=== PATIENT | male | born 1950 | race Hispanic/Latino ===

== ENCOUNTER 2018-10-25 10:10 | Inpatient (IN) | payer OTHER ==
--- NOTE | 2018-10-25 12:39 | RAD ---
Date of service: 10/25/2018 HISTORY: possible admission COMPARISON: No prior. FINDINGS: LUNGS: The lungs are well inflated. There is confluent airspace disease in the right lower lobe. There is left lower lobe subsegmental atelectasis. PLEURA: No pleural effusions or pneumothorax. CARDIOVASCULAR: The heart is normal in size. No aortic atherosclerotic calcification present. OSSEOUS STRUCTURES: Within normal limits for the patient's age. VISUALIZED UPPER ABDOMEN: Normal. OTHER FINDINGS: None. IMPRESSION: Findings are concerning for right lower lobe pneumonia. Follow-up after medical management is recommended to ensure complete resolution. The final report is tagged to the PA review folder.
[2018-10-25] MEDS ORDERED: cefTRIAXone (Rocephin) 1 gm Inj ONE (13:21)
[2018-10-25] MEDS ORDERED: Azithromycin 500 MG IV IVPB ONE (13:21)
[2018-10-25] MEDS ORDERED: Albuterol-Ipratrop 3 mg / 0.5 (3 ml) UD ONE ×3 (13:21→20:45)
[2018-10-25] MEDS ORDERED: Dexamethasone 4 mg/1 ml ONE (13:21)
[2018-10-25 15:20] LABS: BLOOD UREA NITROGEN 15 mg/dl (9-20); GFR NON-AFRICAN AMERICAN > 60
[2018-10-25 15:21] LABS: CALCIUM 9.2 mg/dL (8.4-10.2)
[2018-10-25 15:22] LABS: ALB/GLOB RATIO 0.9 (1.0-2.1); ALT/SGPT 40 U/L (21-72); AST/SGOT 57 U/L (17-59); B-TYPE NATRIURETIC PEPTIDE 35 pg/ml (0-900)
[2018-10-25] MEDS ORDERED: Sodium Chloride 3% for Inhalation 4 ML VIAL.NEB IH PRN (15:31)
[2018-10-25] MEDS: Sodium Chloride 0.9% 1,000 ML IV SCH (15:35)
[2018-10-25 16:08] LABS: BASO % 0.5 % (0.0-2.0); HEMOGLOBIN 13.5 g/dL (12.0-18.0); LYMPH # 1.1 K/uL (1.0-4.3); LYMPH % 10.3 % (20.0-40.0); MEAN CELL VOLUME 92.9 fl (80.0-94.0); MEAN CORPUSCULAR HEMOGLOBIN 31.2 pg (27.0-31.0); MEAN CORPUSCULAR HGB CONC 33.6 g/dL (33.0-37.0); MEAN PLATELET VOLUME 8.1 fl (7.2-11.7); MONO # 0.8 K/uL (0.0-0.8); MONO % 7.4 % (0.0-10.0); NEUT # 8.7 K/uL (1.8-7.0); NEUT % 81.8 % (50.0-75.0); RBC 4.3 Mil/uL (4.40-5.90); RED CELL DISTRIBUTION WIDTH 13.1 % (11.5-14.5); WHITE BLOOD COUNT 10.6 K/uL (4.8-10.8)
--- NOTE | 2018-10-25 16:37 | CP.PCM.HP ---
History of Present Illness - History of Present Illness History of Present Illness: 68 yo M with no significant known medical history, admitted for sepsis secondary to bilateral pneumonia; complained of cough productive of yellow sputum x 1 week, accompanied by shortness of breath, tactile fevers and loss of appetite. Denies any hemoptysis, hematochezia, vomiting, nausea, diarrhea, chills. Reports that he has been having some chronic cough for several years but it has gotten worse in the past week. States he does not have a doctor. Lives in [place]; here visiting his daughter for past week. Denies chills, chest pain, abdominal pain, nausea, vomiting, diarrhea, constipation, leg swelling, problems with vision/hearing. Med hx: denies any chronic medical problems Surg hx: denies any surgical procedures Social hx: smoker, 1 ppd since age 18, quit 1 mo ago as per pt. Lives with in [place]. Family hx: noncontributory Meds: denies any medications Allergies: denies any allergies, NKDA ED course: afebrile, normotensive, O2 sat on room air dropping to low 80s as observed by ED RN Labs: CMP unremarkable, neg troponin, proBNP 35 EKG NSR Neg for influenza Duoneb x3 12 mg decadron 500 mg zithromax 1 gm rocephin Received 2.5L NS Blood cultures collected CXR: bilateral infilrates Venti- Mask Present on Admission - Present on Admission Any Indicators Present on Admission: No Review of Systems - Review of Systems All systems: reviewed and no additional remarkable complaints except (cough, shortness of breath, fevers; as per HPI) Past Patient History - Infectious Disease Hx of Infectious Diseases: None - Past Social History Smoking Status: Former Smoker Alcohol: None Drugs: Denies - CARDIAC Hx Cardiac Disorders: No - PULMONARY Hx Respiratory Disorders: No - NEUROLOGICAL Hx Neurological Disorder: No - HEENT Hx HEENT Problems: No - RENAL Hx Chronic Kidney Disease: No - ENDOCRINE/METABOLIC Hx Endocrine Disorders: No - HEMATOLOGICAL/ONCOLOGICAL Hx Blood Disorders: No - INTEGUMENTARY Hx Dermatological Problems: No - MUSCULOSKELETAL/RHEUMATOLOGICAL Hx Musculoskeletal Disorders: No - GASTROINTESTINAL Hx Gastrointestinal Disorders: No - GENITOURINARY/GYNECOLOGICAL Hx Genitourinary Disorders: No - PSYCHIATRIC Hx Psychophysiologic Disorder: No Hx Substance Use: No - SURGICAL HISTORY Hx Surgeries: No - ANESTHESIA Hx Anesthesia: No Meds Allergies/Adverse Reactions: Allergies Allergy/AdvReac Type Severity Reaction Status Date / Time No Known Allergies Allergy Verified 10/25/18 10:44 Physical Exam - Constitutional Additional comments: unwell, sick - Head Exam Head Exam: NORMAL INSPECTION Additional comments: wearing venti-mask - Eye Exam Eye Exam: Normal appearance - ENT Exam ENT Exam: Mucous Membranes Moist - Neck Exam Neck exam: Positive for: Full Rom. Negative for: Lymphadenopathy - Respiratory Exam Respiratory Exam: Decreased Breath Sounds. absent: Clear to Auscultation Bilateral Additional comments: decreased breath sounds; wheezing/crackles/coarse sounds at bases bilaterally coughing during assessment - Cardiovascular Exam Cardiovascular Exam: REGULAR RHYTHM, +S1, +S2 - GI/Abdominal Exam GI & Abdominal Exam: Normal Bowel Sounds, Soft - Extremities Exam Extremities exam: Positive for: normal inspection. Negative for: calf tender ness, pedal edema - Back Exam Back exam: NORMAL INSPECTION - Neurological Exam Neurological exam: Alert - Skin Skin Exam: Warm Results - Vital Signs Recent Vital Signs: Last Vital Signs Temp 98.4 F 10/25/18 10:19 Pulse 84 10/25/18 10:19 Resp 17 10/25/18 10:19 BP 131/75 10/25/18 10:19 Pulse Ox 95 10/25/18 10:19 - Labs Result Diagrams: 10/25/18 11:00 10/25/18 11:25 Labs: Laboratory Results - last 24 hr 10/25/18 10/25/18 10/25/18 11:00 11:25 11:35 WBC 10.6 RBC 4.30 L Hgb 13.5 Hct 40.0 MCV 92.9 MCH 31.2 H MCHC 33.6 RDW 13.1 Plt Count 337 MPV 8.1 Neut % (Auto) 81.8 H Lymph % (Auto) 10.3 L [place] % (Auto) 7.4 Eos % (Auto) 0.0 Baso % (Auto) 0.5 Neut # (Auto) 8.7 H Lymph # (Auto) 1.1 [place] # (Auto) 0.8 Eos # (Auto) 0.0 Baso # (Auto) 0.0 Sodium 135 Potassium 3.9 Chloride 100 Carbon Dioxide 27 Anion Gap 12 BUN 15 Creatinine 0.7 L Est GFR ( Amer) > 60 Est GFR (Non-Af Amer) > 60 Random Glucose 115 H Calcium 9.2 Total Bilirubin 0.6 AST 57 ALT 40 Alkaline Phosphatase 181 H Troponin I < 0.0120 NT-Pro-B Natriuret Pep 35 Total Protein 8.7 H Albumin 4.0 Globulin 4.7 H Albumin/Globulin Ratio 0.9 L Influenza Typ A,B (EIA) Negative for flu a/b Assessment & Plan - Assessment and Plan (Free Text) Assessment: 68 yo M with no known medical history, smoker, admitted with sepsis due to bilateral pneumonia. CXR official read: Findings concerning for right lower lobe pneumonia. Left lower lobe subsegmental atelectasis. Plan: Community Acquired Pneumonia - Admit to telemetry and place on tele monitoring - S/p 1 gm rocephin and 500 mg azithromycin - Start vancomycin 1 gm Q12h, Zosyn 3.375 gm Q6h, zithromax 500 mg daily - F/u blood cultures and sputum cultures - Legionella and mycoplasma antigen testing - ABG - High Flow O2, humidified, 10L/hr at 40% FiO2 - Mucinex-DM for cough - Duonebs Q4 hrs scheduled - IV hydration, NS @ 100 ml/hr Diet - Regular diet DVT prophylaxis - Lovenox SC Pt seen and discussed in ED with Dr. Guzman.
[2018-10-25] MEDS: Albuterol-Ipratrop 3 mg / 0.5 (3 ml) UD INH SCH ×2 (16:45→20:45)
[2018-10-25] MEDS ORDERED: Vancomycin 1 g Inj ONE (20:45)
[2018-10-26] MEDS: Albuterol-Ipratrop 3 mg / 0.5 (3 ml) UD INH SCH ×6 (00:15→18:59)
[2018-10-26] MEDS: Sodium Chloride 0.9% 1,000 ML IV SCH ×2 (04:07→09:22)
[2018-10-26] MEDS: Piperacillin/Tazobact 3.375 GM in Sodium Chloride 0.9% 100 ML IVPB SCH ×4 (05:51→21:11)
[2018-10-26 06:34] LABS: ALB/GLOB RATIO 0.8 (1.0-2.1); ALBUMIN 3.3 g/dL (3.5-5.0); ALT/SGPT 43 U/L (21-72); AST/SGOT 46 U/L (17-59); BLOOD UREA NITROGEN 15 mg/dl (9-20); CALCIUM 8.2 mg/dL (8.4-10.2); GFR NON-AFRICAN AMERICAN > 60
[2018-10-26 06:41] LABS: BASO % 0.2 % (0.0-2.0); LYMPH % 10.3 % (20.0-40.0); MEAN CELL VOLUME 93.2 fl (80.0-94.0); MEAN CORPUSCULAR HEMOGLOBIN 31.2 pg (27.0-31.0); MEAN CORPUSCULAR HGB CONC 33.5 g/dL (33.0-37.0); MEAN PLATELET VOLUME 7.8 fl (7.2-11.7); MONO # 0.6 K/uL (0.0-0.8); MONO % 5.8 % (0.0-10.0); NEUT # 8.3 K/uL (1.8-7.0); NEUT % 83.7 % (50.0-75.0); RBC 3.84 Mil/uL (4.40-5.90); WHITE BLOOD COUNT 9.9 K/uL (4.8-10.8)
[2018-10-26] MEDS: Enoxaparin 40 mg Syringe SC SCH (09:22)
--- NOTE | 2018-10-26 09:22 | CARD ---
APPROVED REPORT Date of service: 10/25/2018 EKG Measurement Heart [id number] <Conclusion> Normal sinus rhythm Normal ECG
[2018-10-26] MEDS: guaiFENesin-DM 600-30 mg ER Tab PO SCH ×2 (11:00→18:54)
[2018-10-26] MEDS: Azithromycin 500 MG in Sodium Chloride 0.9% 250 ML IVPB SCH (11:33)
--- NOTE | 2018-10-26 12:59 | CP.PCM.PN ---
Subjective - Date & Time of Evaluation Date of Evaluation: 10/26/18 Time of Evaluation: 10:30 - Subjective Subjective: Pt seen/eval at bedside; still on high flow O2. No acute events overnight, states he feels better than yesterday, still has productive cough. No chest pain, tolerating regular diet. Objective - Vital Signs/Intake and Output Vital Signs (last 24 hours): Temp Pulse Resp BP Pulse Ox 98.1 F 69 18 111/59 L 96 10/26/18 11:56 10/26/18 11:56 10/26/18 11:56 10/26/18 11:56 10/26/18 11:56 - Medications Medications: Current Medications Albuterol/Ipratropium (Duoneb 3 Mg/0.5 Mg (3 Ml) Ud) 3 ml INH RQ4 VICENTA Last Admin: 10/26/18 11:24 Dose: 3 ml Enoxaparin Sodium (Lovenox) 40 mg SC DAILY VICENTA; Protocol Last Admin: 10/26/18 09:22 Dose: 40 mg Guaifenesin/Dextromethorphan (Mucinex-Dm 600-30 Mg) 2 tab PO BID VICENTA Last Admin: 10/26/18 11:00 Dose: 2 tab Azithromycin 500 mg/ Sodium (Chloride) 250 mls @ 250 mls/hr IVPB DAILY VICENTA; Protocol Last Admin: 10/26/18 11:33 Dose: 250 mls/hr Vancomycin HCl 1 gm/ Sodium (Chloride) 250 mls @ 250 mls/hr IVPB Q12H VICENTA; Protocol Last Admin: 10/26/18 03:44 Dose: 250 mls/hr Piperacillin Sod/Tazobactam (Sod 3.375 gm/ Sodium Chloride) 100 mls @ 100 mls/hr IVPB Q6 VICENTA; Protocol Last Admin: 10/26/18 09:21 Dose: 100 mls/hr Sodium Chloride (Sodium Chloride 0.9%) 1,000 mls @ 125 mls/hr IV .Q8H VICENTA Stop: 10/26/18 15:39 Last Admin: 10/26/18 09:22 Dose: 125 mls/hr - Labs Labs: 10/26/18 04:15 10/26/18 04:15 - Constitutional Appears: No Acute Distress - Head Exam Head Exam: NORMAL INSPECTION Additional comments: wearing mask, on high flow O2 - Eye Exam Eye Exam: Normal appearance - ENT Exam ENT Exam: Mucous Membranes Moist - Respiratory Exam Respiratory Exam: Decreased Breath Sounds, NORMAL BREATHING PATTERN. absent: Respiratory Distress - Cardiovascular Exam Cardiovascular Exam: REGULAR RHYTHM, +S1, +S2 - GI/Abdominal Exam GI & Abdominal Exam: Soft - Extremities Exam Extremities Exam: Normal Inspection. absent: Calf Tenderness - Neurological Exam Neurological Exam: Alert - Psychiatric Exam Psychiatric exam: Normal Affect - Skin Skin Exam: Normal Color Assessment and Plan - Assessment and Plan (Free Text) Assessment: 68 yo M with no known medical history, smoker, admitted with sepsis due to bilateral pneumonia. CXR official read: Findings concerning for right lower lobe pneumonia. Left lower lobe subsegmental atelectasis. Originally saturating in low 80s without O2, breathing at 40-45 breaths/min. Improved O2 sat on venti ariel and high flow O2, resp rate normalized to 18-20. Plan: Community Acquired Pneumonia - S/p 1 gm rocephin and 500 mg azithromycin - Continue vancomycin 1 gm Q12h, Zosyn 3.375 gm Q6h, zithromax 500 mg daily - F/u blood cultures and sputum cultures - Legionella and mycoplasma antigen testing - Trial of nasal canula 3L/min; monitor for desat or resp distress - Mucinex-DM for cough - Duonebs Q4 hrs scheduled - IV hydration, NS @ 100 ml/hr Diet - Regular diet DVT prophylaxis - Lovenox SC
[2018-10-27] MEDS: Albuterol-Ipratrop 3 mg / 0.5 (3 ml) UD INH SCH ×4 (00:11→11:08)
[2018-10-27] MEDS: Piperacillin/Tazobact 3.375 GM in Sodium Chloride 0.9% 100 ML IVPB SCH ×2 (03:07→09:27)
[2018-10-27 05:46] LABS: HEMOGLOBIN 11.8 g/dL (12.0-18.0); MEAN CELL VOLUME 95.9 fl (80.0-94.0); MEAN CORPUSCULAR HEMOGLOBIN 31.2 pg (27.0-31.0); MEAN CORPUSCULAR HGB CONC 32.5 g/dL (33.0-37.0); RBC 3.79 Mil/uL (4.40-5.90); RED CELL DISTRIBUTION WIDTH 13.2 % (11.5-14.5); WHITE BLOOD COUNT 9.6 K/uL (4.8-10.8)
[2018-10-27 05:56] LABS: BLOOD UREA NITROGEN 12 mg/dl (9-20); CALCIUM 8.4 mg/dL (8.4-10.2); GFR NON-AFRICAN AMERICAN > 60
[2018-10-27 08:18] VITALS: RESP 18
[2018-10-27] MEDS: Azithromycin 500 MG in Sodium Chloride 0.9% 250 ML IVPB SCH (09:28)
[2018-10-27] MEDS: Enoxaparin 40 mg Syringe SC SCH (09:29)
[2018-10-27] MEDS: guaiFENesin-DM 600-30 mg ER Tab PO SCH (09:29)
[2018-10-27 12:11] VITALS: BP 114/69; PULSE 69; TEMP 97.4; O2SAT 95
[2018-10-27] MEDS ORDERED: Pneumococcal 23-Valent Vaccine IM ONE (14:22)
--- NOTE | 2018-10-27 14:22 | CP.PCM.DIS ---
Provider - Provider Date of Admission: 10/25/18 15:26 Attending physician: Liat Guzman MD Primary care physician: none Time Spent in preparation of Discharge (in minutes): 30 Diagnosis - Discharge Diagnosis (1) Community acquired pneumonia Status: Acute Hospital Course - Lab Results Lab Results: Micro Results 10/25/18 11:15 Blood-Venous Blood Culture - Preliminary NO GROWTH AFTER 24 HOURS Most Recent Lab Values WBC 9.6 K/uL (4.8-10.8) 10/27/18 04:30 RBC 3.79 Mil/uL (4.40-5.90) L 10/27/18 04:30 Hgb 11.8 g/dL (12.0-18.0) L 10/27/18 04:30 Hct 36.3 % (35.0-51.0) 10/27/18 04:30 MCV 95.9 fl (80.0-94.0) H D 10/27/18 04:30 MCH 31.2 pg (27.0-31.0) H 10/27/18 04:30 MCHC 32.5 g/dL (33.0-37.0) L 10/27/18 04:30 RDW 13.2 % (11.5-14.5) 10/27/18 04:30 Plt Count 357 K/uL (130-400) 10/27/18 04:30 MPV 7.8 fl (7.2-11.7) 10/26/18 04:15 Neut % (Auto) 83.7 % (50.0-75.0) H 10/26/18 04:15 Lymph % (Auto) 10.3 % (20.0-40.0) L 10/26/18 04:15 [place] % (Auto) 5.8 % (0.0-10.0) 10/26/18 04:15 Eos % (Auto) 0.0 % (0.0-4.0) 10/26/18 04:15 Baso % (Auto) 0.2 % (0.0-2.0) 10/26/18 04:15 Neut # (Auto) 8.3 K/uL (1.8-7.0) H 10/26/18 04:15 Lymph # (Auto) 1.0 K/uL (1.0-4.3) 10/26/18 04:15 [place] # (Auto) 0.6 K/uL (0.0-0.8) 10/26/18 04:15 Eos # (Auto) 0.0 K/uL (0.0-0.7) 10/26/18 04:15 Baso # (Auto) 0.0 K/uL (0.0-0.2) 10/26/18 04:15 Sodium 138 mmol/l (132-148) 10/27/18 04:30 Potassium 3.8 MMOL/L (3.6-5.0) 10/27/18 04:30 Chloride 104 mmol/L (98-107) 10/27/18 04:30 Carbon Dioxide 26 mmol/L (22-30) 10/27/18 04:30 Anion Gap 12 (10-20) 10/27/18 04:30 BUN 12 mg/dl (9-20) 10/27/18 04:30 Creatinine 0.7 mg/dl (0.8-1.5) L 10/27/18 04:30 Est GFR ( Amer) > 60 10/27/18 04:30 Est GFR (Non-Af Amer) > 60 10/27/18 04:30 Random Glucose 127 mg/dL (75-110) H 10/27/18 04:30 Calcium 8.4 mg/dL (8.4-10.2) 10/27/18 04:30 Magnesium 2.7 MG/DL (1.6-2.3) H 10/26/18 04:15 Total Bilirubin 0.4 mg/dl (0.2-1.3) 10/26/18 04:15 AST 46 U/L (17-59) 10/26/18 04:15 ALT 43 U/L (21-72) 10/26/18 04:15 Alkaline Phosphatase 123 U/L (38-126) 10/26/18 04:15 Troponin I < 0.0120 ng/mL (0.00-0.120) 10/25/18 11:25 NT-Pro-B Natriuret Pep 35 pg/ml (0-900) 10/25/18 11:25 Total Protein 7.4 G/DL (6.3-8.2) 10/26/18 04:15 Albumin 3.3 g/dL (3.5-5.0) L 10/26/18 04:15 Globulin 4.1 gm/dL (2.2-3.9) H 10/26/18 04:15 Albumin/Globulin Ratio 0.8 (1.0-2.1) L 10/26/18 04:15 Influenza Typ A,B (EIA) Negative for flu a/b (NEGATIVE) 10/25/18 11:35 - Hospital Course Hospital Course: 68 yo M with no known medical history, smoker, admitted with sepsis due to bilateral pneumonia. CXR official read: Findings concerning for right lower lobe pneumonia. Left lower lobe subsegmental atelectasis. Originally saturating in low 80s without O2, breathing at 40-45 breaths/min. Improved O2 sat on venti ariel and high flow O2, resp rate normalized to 18-20. Started on vanco, zosyn, azithromycin, with marked clinical improvement. Sputum and blood cultures negative thus far. No leukocytosis. Since yesterday has been on NC, saturating 95-100; ambulated around unit today without NC, saturating 97%. Physical exam much improved - clearer breath sounds than on admission. Pt seen today; reports feeling much better. Discussed with pt that he is stable for d/c but must continue to take PO antibiotics x 10 days (Omnicef 300 mg BID x 10 days, Augment 875-125 mg BID x 10 days). Also discussed must follow up with primary care physician - apt made at [facility] for Nov 03, 2018 at 320 pm. Pt and his family at bedside verbalized understanding. Discharge Exam - Head Exam Head Exam: NORMAL INSPECTION - Eye Exam Eye Exam: Normal appearance - ENT Exam ENT Exam: Mucous Membranes Moist - Respiratory Exam Respiratory Exam: NORMAL BREATHING PATTERN. absent: Respiratory Distress Additional comments: some coarse sounds at bases, but significantly improved from admission - Cardiovascular Exam Cardiovascular Exam: REGULAR RHYTHM, +S1, +S2 - GI/Abdominal Exam GI & Abdominal Exam: Soft - Extremities Exam Extremities exam: normal inspection - Neurological Exam Neurological exam: Alert, Oriented x3 - Psychiatric Exam Psychiatric exam: Normal Mood - Skin Skin Exam: Dry, Normal Color, Warm Discharge Plan - Discharge Medications Prescriptions: Amoxicillin/Clavulanate [Augmentin 875 MG-125 MG] 1 tab PO Q12 #20 tab Cefdinir [Omnicef] 300 mg PO Q12 #20 cap - Follow Up Plan Condition: GOOD Disposition: HOME/ ROUTINE Instructions: Pneumonia, Adult (DC) Additional Instructions: Please take antibiotics as prescribed; there are 2 prescriptions (omnicef and augmentin). You have a follow up visit at [facility] ([address] [place] [address]) with a primary care doctor on Nov 03, 2018 at 3:20 pm. Return to ED if you have difficulty breathing, chest pains, fevers Por favor, lupe pastillas antibioticos - hay 2 recetas (omnicef y augmentin). Tiene nicolas en officina en [facility] ([address] [place] [address]) con un doctor primario. Nicolas es 11 de enero, a las 3:20 en la tarde. Regresa a la emergencia si tiene problemas con respiracion, tiene fiebre, o tiene irene en pecho. Referrals: [facility] [Outside] - 11/03/18 3:20 pm
== END 2018-10-27 15:35 | disposition home or self-care (01) | DRG 720 ==
LOC: H.ER 10:10 → H.ERHOLD 15:26 → H.TEL 22:58
PROVIDERS: ADMIT Hospitalist; ATTEND Hospitalist
PROC: 3E0234Z Introduction of Serum, Toxoid and Vaccine into Muscle, Percutaneous Approach (ICD-10-PCS; principal; 2018-10-27)
DX: A41.9 Sepsis, unspecified organism (principal); J96.01 Acute respiratory failure with hypoxia; J18.9 Pneumonia, unspecified organism; J98.11 Atelectasis; F17.210 Nicotine dependence, cigarettes, uncomplicated; Z23 Encounter for immunization